=== PATIENT | female | born 1935 | race Caucasian/White ===

== ENCOUNTER 2018-10-21 18:10 | Emergency (ER) | payer MEDICARE, OTHER ==
--- NOTE | 2018-10-21 18:49 | EDM.PDOC ---
ED HPI GENERAL MEDICAL PROBLEM - General Chief Complaint: Lower Extremity Injury/Pain Stated Complaint: LEFT SWOLLEN ANKLE Time Seen by Provider: 10/21/18 18:43 Source of Information: Reports: Patient History Limitations: Reports: No Limitations - History of Present Illness INITIAL COMMENTS - FREE TEXT/NARRATIVE: Patient is an 83-year-old female who presents to the emergency department this evening with a complaint of left ankle edema. She states that she woke up this morning and had some tenderness of her left ankle and has spent the past 8 hours at the hospital seeing her who was admitted. This was in the sitting position with her feet on the ground. When she got up to leave, she experienced more pain in that left ankle and noticed more swelling. Patient states this happens intermittently and resolves after lying down. However she denies any trauma, fall, or twisting of ankle. Patient also denies any chest pain, shortness of breath, or fever. Onset: Gradual Location: Reports: Lower Extremity, Left Quality: Reports: Ache, Pressure Severity: Mild Improves with: Reports: Immobilization Worsens with: Reports: Movement Context: Denies: Trauma Associated Symptoms: Reports: No Other Symptoms Left Ankle Pain Score (Numeric/FACES): 10 - Related Data Allergies Allergy/AdvReac Type Severity Reaction Status Date / Time sargramostim [From Leukine] Allergy Cannot Verified 10/21/18 18:21 Remember Home Meds: Home Meds Aspirin [Ecotrin] 325 mg PO BEDTIME 10/21/18 [History] Atenolol 50 mg PO DAILY 10/21/18 [History] Calcium Carbonate/Vitamin D3 [Calcium 500-Vit D3 200 Tablet] 1 tab PO BEDTIME [History] Losartan Potassium 100 mg PO DAILY 10/21/18 [History] Meloxicam 15 mg PO DAILY 10/21/18 [History] Multivitamin [Multivitamins] 1 cap PO BEDTIME 10/21/18 [History] Venlafaxine HCl [Venlafaxine ER] 75 mg PO DAILY 10/21/18 [History] amLODIPine Besylate [Amlodipine Besylate] 5 mg PO DAILY 10/21/18 [History] predniSONE 20 mg PO WITHBREAKFAST #5 tab 10/21/18 [Rx] Past Medical History HEENT History: Reports: Hard of Hearing, Impaired Vision Cardiovascular History: Reports: Hypertension Gastrointestinal History: Reports: None Genitourinary History: Reports: None 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: Musculoskeletal History: Reports: None Oncologic (Cancer) History: Reports: Breast, Lymphoma - Infectious Disease History Infectious Disease History: Reports: Measles, Mumps, Shingles - Past Surgical History Head Surgeries/Procedures: Reports: None HEENT Surgical History: Reports: None Cardiovascular Surgical History: Reports: None GI Surgical History: Reports: Appendectomy Female Surgical History: Reports: Hysterectomy, Mastectomy Musculoskeletal Surgical History: Reports: Hip Replacement, Knee Replacement Oncologic Surgical History: Reports: Mastectomy Dermatological Surgical History: Reports: None Review of Systems - Review of Systems Review Of Systems: ROS reveals no pertinent complaints other than HPI. Constitutional: Reports: No Symptoms Eyes: Reports: No Symptoms Ears: Reports: No Symptoms Nose: Reports: No Symptoms Mouth/Throat: Reports: No Symptoms Respiratory: Reports: No Symptoms Cardiovascular: Reports: No Symptoms GI/Abdominal: Reports: No Symptoms Genitourinary: Reports: No Symptoms Musculoskeletal: Reports: Leg Pain, Foot Pain, Joint Pain Skin: Reports: No Symptoms Neurological: Reports: No Symptoms Psychiatric: Reports: No Symptoms ED EXAM, GENERAL - Physical Exam Exam: See Below Exam Limited By: No Limitations General Appearance: Alert, WD/WN, No Apparent Distress Throat/Mouth: Normal Inspection, Normal Oropharynx, No Airway Compromise Respiratory/Chest: No Respiratory Distress, Lungs Clear, Normal Breath Sounds, Chest Non-Tender Back Exam: Normal Inspection Extremities: No Pedal Edema, Joint Swelling (Left ankle), Leg Pain, Limited Range of Motion (Secondary to pain). No: Increased Warmth, Mottled, Pallor, Redness Neurological: Alert, Oriented, Normal Cognition Psychiatric: Normal Affect, Normal Mood Skin Exam: Warm, Dry, Intact, Normal Color, No Rash Lymphatic: No Adenopathy Course - Vital Signs Last Recorded V/S: Last Vital Signs Temp 97.5 F 10/21/18 18:17 Pulse 71 10/21/18 18:17 Resp 16 10/21/18 18:17 BP 153/67 H 10/21/18 18:17 Pulse Ox 95 10/21/18 18:17 - Orders/Labs/Meds Orders: Active Orders 24 hr Category Date Time Status Ankle Min 3V Lt [CR] Stat Exams 10/21/18 18:30 Ordered Foot Comp Min 3V Lt [CR] Stat Exams 10/21/18 18:30 Ordered - Radiology Interpretation Free Text/Narrative:: X-ray of left ankle and foot shows no acute fracture or dislocation. Arthritic changes noted - Re-Assessments/Exams Free Text/Narrative Re-Assessment/Exam: 10/21/18 19:16 Patient afebrile, vital signs stable, 40 mg prednisone, given in ER. Prescription for 5 day course of prednisone and instructions for elevation and limited activity. She'll follow-up with PCP in 2 days Departure - Departure Time of Disposition: 19:17 Disposition: Home, Self-Care 01 Condition: Good Clinical Impression: Arthritis Joint pain Qualifiers: Joint pain location: ankle Laterality: left Qualified Code(s): M25.572 - Pain in left ankle and joints of left foot - Discharge Information Instructions: Arthritis, [id number], Joint Pain, [id number], RICE for Routine Care of Injuries, [id number] Referrals: Pebbles Wagner PA-C [Primary Care Provider] - Additional Instructions: Follow-up with PCP in 2-3 days. Return to the emergency department sooner if symptoms continue or worsen. Elevate foot when possible, and limit activity. - My Orders Last 24 Hours: My Active Orders 10/21/18 18:30 Ankle Min 3V Lt [CR] Stat Foot Comp Min 3V Lt [CR] Stat - Assessment/Plan Last 24 Hours: My Active Orders 10/21/18 18:30 Ankle Min 3V Lt [CR] Stat Foot Comp Min 3V Lt [CR] Stat Assessment:: Joint pain, arthritis Plan: Follow-up with PCP
[2018-10-21] MEDS ORDERED: predniSONE 20 MG Tab PO ONE (19:14)
--- NOTE | 2018-10-21 19:27 | CR ---
[id number] RAD/RAD Ankle Left 3V Min; [id number] RAD/RAD Foot Left 3V Min Exam: RAD Foot Left 3V Min, RAD Ankle Left 3V Min Indication:UNABLE TO BEAR WEIGHT. Comparison: No prior imaging for comparison. Discussion: AP view of the ankle demonstrates linear lucency in the distal fibula. This is more than expected for normal undulation. Correlate for site of pain, as a fracture is possible. Ankle mortise remains intact. No other evidence of a fracture in the ankle or foot. Linear lucency in the navicular bone on AP view of the foot is consistent with summation and mach band artifact from overlapping navicular and medial cuneiform bones. Bones of the foot and ankle are diffusely demineralized. Impression: Possible fracture of the distal fibula, described above. If findings are clinically equivocal for fracture, CT is recommended. Wilmar Ennis MD 10/21/18 [id number] Thank you for allowing us to participate in the care of your patient.
== END 2018-10-21 19:35 | disposition home or self-care (01) ==
LOC: KA.ED 18:10
DX: M19.072 Primary osteoarthritis, left ankle and foot (principal); I10 Essential (primary) hypertension; Z79.82 Long term (current) use of aspirin; Z79.899 Other long term (current) drug therapy; Z88.8 Allergy status to other drugs, medicaments and biological substances
CPT/HCPCS: 73610-LT; 73630-LT; 99283; 99283-25; A9270-GY

== ENCOUNTER 2018-12-22 10:07 | Emergency (ER) | payer MEDICARE, OTHER ==
[2018-12-22] MEDS ORDERED: predniSONE 20 MG Tab PO ONE (11:10)
[2018-12-22] MEDS ORDERED: Ketorolac 60 MG/2 ML SDV IM ONE (11:10)
--- NOTE | 2018-12-22 11:16 | EDM.PDOC ---
ED HPI GENERAL MEDICAL PROBLEM - General Chief Complaint: General Stated Complaint: RIGHT HAND SWELLING Time Seen by Provider: 12/22/18 11:09 Source of Information: Reports: Patient History Limitations: Reports: No Limitations - History of Present Illness INITIAL COMMENTS - FREE TEXT/NARRATIVE: Patient is an 83-year-old female who presents to the emergency department this morning with a complaint of right hand pain. Patient states that she was cleaning out her closet yesterday, and repeatedly used her right hand to grasp for objects. Shortly after cleaning out the closet, She had aching sensation in her right hand. Pain persisted this morning, so daughter took her to ER. Patient has a history of chronic arthritis. She was on prednisone one month ago for 5 day stretch and had relief of similar symptoms. Patient is scheduled in 2 weeks to see a quality system manager in [place]. Patient denies any blunt trauma, fall, chest pain, shortness of breath, or any change in medication. 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 Right Hand Pain Score (Numeric/FACES): 9 - Related Data Allergies Allergy/AdvReac Type Severity Reaction Status Date / Time sargramostim [From Leukine] Allergy Itching Verified 12/22/18 10:35 Home Meds: Home Meds Aspirin [Ecotrin] 325 mg PO BEDTIME 10/21/18 [History] Atenolol 50 mg PO DAILY 10/21/18 [History] Calcium Carbonate/Vitamin D3 [Calcium 500-Vit D3 200 Tablet] 1 tab PO BEDTIME [History] Losartan Potassium 100 mg PO DAILY 10/21/18 [History] Meloxicam 15 mg PO DAILY 10/21/18 [History] Multivitamin [Multivitamins] 1 cap PO BEDTIME 10/21/18 [History] Venlafaxine HCl [Venlafaxine ER] 75 mg PO DAILY 10/21/18 [History] amLODIPine Besylate [Amlodipine Besylate] 5 mg PO DAILY 10/21/18 [History] Aspirin [Ecotrin] 325 mg PO DAILY 12/22/18 [History] predniSONE [Prednisone] 20 mg PO DAILY #5 tablet 12/22/18 [Rx] Past Medical History HEENT History: Reports: Hard of Hearing, Impaired Vision Cardiovascular History: Reports: Hypertension Gastrointestinal History: Reports: None Genitourinary History: Reports: None 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 History: Reports: None Oncologic (Cancer) History: Reports: Breast, Lymphoma - Infectious Disease History Infectious Disease History: Reports: Measles, Mumps, Shingles - Past Surgical History Head Surgeries/Procedures: Reports: None HEENT Surgical History: Reports: None Cardiovascular Surgical History: Reports: None GI Surgical History: Reports: Appendectomy Female Surgical History: Reports: Hysterectomy, Mastectomy Musculoskeletal Surgical History: Reports: Hip Replacement, Knee Replacement Oncologic Surgical History: Reports: Mastectomy Dermatological Surgical History: Reports: None Social & Family History - Tobacco Use Smoking Status *Q: Never Smoker Second Hand Smoke Exposure: Yes - Caffeine Use Caffeine Use: Reports: Coffee - Recreational Drug Use Recreational Drug Use: No ED ROS GENERAL - Review of Systems Review Of Systems: ROS reveals no pertinent complaints other than HPI. Constitutional: Reports: No Symptoms HEENT: Reports: No Symptoms Respiratory: Reports: No Symptoms Cardiovascular: Reports: No Symptoms Endocrine: Reports: No Symptoms GI/Abdominal: Reports: No Symptoms : Reports: No Symptoms Musculoskeletal: Reports: Hand Pain (Bilateral, right worse than left) Skin: Reports: No Symptoms Neurological: Reports: No Symptoms Psychiatric: Reports: No Symptoms Hematologic/Lymphatic: Reports: No Symptoms Immunologic: Reports: No Symptoms ED EXAM, GENERAL - Physical Exam Exam: See Below Exam Limited By: No Limitations General Appearance: Alert, WD/WN, No Apparent Distress Throat/Mouth: Normal Inspection, Normal Oropharynx, No Airway Compromise Head: Atraumatic, Normocephalic Respiratory/Chest: No Respiratory Distress, Lungs Clear Cardiovascular: Normal Peripheral Pulses Back Exam: Normal Inspection Extremities: Other (Bilateral hand tenderness on palpation and range of motion. Obvious initial deformity of the fingers toward midline. No wrist involvement ) Neurological: Alert, Oriented, Normal Cognition Psychiatric: Normal Affect, Normal Mood Skin Exam: Warm, Dry, Intact, Normal Color, No Rash Lymphatic: No Adenopathy Course - Vital Signs Last Recorded V/S: Last Vital Signs Temp 97.4 F 12/22/18 10:25 Pulse 80 12/22/18 10:25 Resp 20 12/22/18 10:25 BP 143/67 H 12/22/18 10:25 Pulse Ox 92 L 12/22/18 10:25 - Orders/Labs/Meds Orders: Active Orders 24 hr Category Date Time Status Ketorolac [Toradol] Med 12/22/18 11:10 Once 30 mg IM ONETIME ONE predniSONE Med 12/22/18 11:10 Once 40 mg PO ONETIME ONE - Re-Assessments/Exams Free Text/Narrative Re-Assessment/Exam: 12/22/18 11:20 Patient afebrile, appears nontoxic, given 30 mg IM Toradol, and 40 mg prednisone in ER. Patient prescription for prednisone 5 days. Patient will follow up with quality system manager as scheduled in 2 weeks. Departure - Departure Time of Disposition: 11:20 Disposition: Home, Self-Care 01 Condition: Good Clinical Impression: Arthritis Joint pain Qualifiers: Joint pain location: ankle Laterality: left Qualified Code(s): M25.572 - Pain in left ankle and joints of left foot - Discharge Information Instructions: Joint Pain, [id number], What You Need to Know About Osteoarthritis, Arthritis, [id number] Referrals: Pebbles Wagner PA-C [Primary Care Provider] - Additional Instructions: Follow-up with PCP and quality system manager as scheduled. Return to emergency department sooner if symptoms continue or worsen. Take medication as directed - My Orders Last 24 Hours: My Active Orders 12/22/18 11:10 Ketorolac [Toradol] 30 mg IM ONETIME ONE predniSONE 40 mg PO ONETIME ONE - Assessment/Plan Last 24 Hours: My Active Orders 12/22/18 11:10 Ketorolac [Toradol] 30 mg IM ONETIME ONE predniSONE 40 mg PO ONETIME ONE Assessment:: Arthritis Plan: Follow-up with PCP and quality system manager as scheduled
== END 2018-12-22 11:37 | disposition home or self-care (01) ==
LOC: KA.ED 10:07
DX: M19.90 Unspecified osteoarthritis, unspecified site (principal); M79.642 Pain in left hand; M79.641 Pain in right hand; M25.572 Pain in left ankle and joints of left foot
CPT/HCPCS: 96372; 99282; 99283; A9270-GY; J1885